=== PATIENT | male | born 2000 | race African-American/Black ===

== ENCOUNTER 2020-07-15 10:54 | Emergency (ER) | payer BC, SELFPAY ==
[2020-07-15 12:16] VITALS: BP 145/92; PULSE 88; RESP 18; TEMP 36.9; O2SAT 96; BMI 26.6
[2020-07-15] MEDS: Lidocaine HCl 1 % MPF 5 ML VIAL SUBCUT (13:36)
--- NOTE | 2020-07-15 15:06 | ED_ITS ---
HPI - Skin/Abscess/Foreign Bdy General Chief complaint: Skin/Abscess/Foreign Body Stated complaint: abscess Time Seen by Provider: 07/15/20 13:11 Source: patient Mode of arrival: ambulatory History of Present Illness HPI narrative: 19-year-old male with no significant past medical history presenting to ED complaining of abscess to buttock area x4 days. Reports mild malodorous drainage. Admits to subjective fever/chills. Denies abdominal pain, nausea /vomiting, dysuria / hematuria, pain with BMs, constipation MD complaint: abscess/boil Onset (ago): day(s) Related Data Previous Rx's Medication Instructions Recorded cephalexin [Keflex] 500 mg PO Q6H 7 Days #28 cap 07/15/20 sulfamethoxazole-trimethoprim 1 tab PO Q12H 7 Days #14 tab 07/15/20 [Bactrim DS] Allergies Allergy/AdvReac Type Severity Reaction Status Date / Time No Known Allergies Allergy Verified 07/15/20 12:18 Review of Systems Review of Systems: Constitutional: No Weight loss, +subj Fever, +Chills Gastrointestinal: No Nausea, No Vomiting, No Diarrhea, No Constipation, No Abdominal pain Genitourinary:, No Dysuria, No Urinary Frequency, No Hematuria, No Flank Pain Musculoskeletal: No joint pain, No Myalgias, No Joint Swelling Skin: +abscess, No rash Yes all other systems are reviewed and are negative [facility] Past Medical History Attestation statement: The following information was validated with the patient. Medical History (Updated 07/15/20 @ 15:18 by JEAN PAUL Calix) No known health problems Social History Social History Advance Directives: No Advance Directives Information Provided: No Physical Exam Vital Signs: Vital Signs: Vital Signs Temp Pulse Resp BP Pulse Ox 07/15/20 12:16 98.5 F 88 18 145/92 H 96 Body Mass Index 26.6 Const: General: cooperative and healthy appearing Orientation/consciousness: patient oriented x3 Limitations: no limitations HENMT: Head: Yes normal to inspection Ears: hearing grossly normal maria elena aterally General nose exam: Normal external nose present Face and sinus: Yes normal facial exam Eyes: General: appearance normal, both eyes and all related structures EOM: EOMs intact bilaterally Neck: Neck: Yes normal visual inspection Resp: Effort & Inspection: normal respiratory effort GI: Inspection: Yes normal to inspection : Other: +Left sided perianal abscess at 10 o'clock region pointing with malodorous drainage, +fluctaunce and induration.No surrounding cellulitis no rectal involvement Neuro: General: patient oriented x3 Extrem: General: Yes normal to inspection Procedures Abscess I/D Site: tanisha-rectal (perianal) Side (if applicable): left Local Anesthetic: lidocaine 1% Amount of anesthesia used (mL): 4 Technique: incised with blade Sent for culture/gram staining?: Yes Packing used?: none Complications: pain and bleeding MDM - Skin/Abscess/Foreign Bdy MDM Narrative Medical decision making narrative: history/ exam consistent with perianal abscess. No appreciable rectal involvement. - area was I&Ded in ED with moderate purulence/malodorous drainage expressed Discharge Plan Discharge Clinical Impression: Abscess, perianal Patient Disposition: Home, Self-Care Instructions: Rectal Abscess (ED) Additional Instructions: your abscess was drained today in the ED Bactrim and Keflex are antibiotics, take as prescribed YOU NEED TO RETURN TO THE ED IN 2 DAYS FOR RE-EVALUATION Keep area dry and clean. It is normal for to drain for the next 24 hours If it continues to drain after that, or you fever/chills, redness around the area return to the ED immediately Prescriptions: New cephalexin [Keflex] 500 mg capsule 500 mg PO Q6H 7 Days Qty: 28 RF: 0 sulfamethoxazole-trimethoprim [Bactrim DS] 800-160 mg tablet 1 tab PO Q12H 7 Days Qty: 14 RF: 0 Referrals: Physician,None [Primary Care Provider] - 2 days ( return to the ED or your primary care provider in 2 days for re-evaluation) Stand Alone Forms: Work/School Release
[2020-07-15] MEDS: cephALEXin 500 MG CAPSULE PO (15:15)
== END 2020-07-15 15:45 | disposition home or self-care (01) ==
PROVIDERS: Emergency Provider Emergency Medicine
DX: K61.0 Anal abscess (principal); Z79.899 Other long term (current) drug therapy
CPT/HCPCS: 46050; 87071; 87205; 99282; 99284